=== PATIENT | male | born 1985 | race Two or more races ===

== ENCOUNTER 2022-07-29 15:46 | Emergency (ER) | payer OTHER ==
[~2022-07-29] VITALS: Ht 175.3 cm; Wt 63.5 kg
[2022-07-29] MEDS ORDERED: IBU800 MG PO (17:58)
== END 2022-07-29 18:05 | disposition home or self-care (01) ==
LOC: ER 15:46
DX: R68.84 Jaw pain (principal); Z20.822 Contact with and (suspected) exposure to COVID-19